=== PATIENT | female | born 1980 | race Caucasian/White ===

== ENCOUNTER → 2025-06-13 19:19 | Outpatient (CLI) | payer OTHER, SELFPAY ==
--- NOTE | 2025-06-13 | DI.RAD_ITS ---
Exam(s) XR HAND LT COMPLETE EXAM: XR HAND LT COMPLETE CLINICAL HISTORY: Pain in L hand. TECHNIQUE: 2D digital imaging was performed of the left hand. Three views were obtained. AP, lateral and oblique views were obtained. COMPARISON: No exams were available for comparison FINDINGS: BONES: No acute fracture is present. No bony destructive lesion is seen. JOINTS: No dislocation present. SOFT TISSUE: Normal. IMPRESSION: 1. Unremarkable radiographs of the left hand. 2. The preliminary [facility] report was reviewed. DATA REPOSITORY: RADIATION DOSE DELIVERED:
--- NOTE | 2025-06-13 20:02 | DI.[facility]_ITS ---
PROCEDURE INFORMATION: Exam: XR Left Hand Exam date and time: 06/13/2025 7:34 PM Age: 44 years old Clinical indication: Left; Mid hand to lat hand pain since today after something fell on her hand TECHNIQUE: Imaging protocol: Radiologic exam of the left hand. Views: 3 or more views. COMPARISON: No relevant prior studies available. FINDINGS: Bones/joints: Three views of the left hand reveal no acute fracture or dislocation. Soft tissues: No gross focal soft tissue abnormality is demonstrated. IMPRESSION: No acute fracture or dislocation seen in the left hand. Dictated and Authenticated by: Arnulfo Hess MD. Orderin ALCIDES DE LOS SANTOS MD
== END ==
LOC: LBN 19:20 → DI 19:26
PROVIDERS: PCP Nurse Practitioner Family; Visit Provider Nurse Practitioner Family
DX: M79.642 Pain in left hand (principal)
CPT/HCPCS: 73130